=== PATIENT | female | born 1975 | race Caucasian/White ===

== ENCOUNTER 2016-10-08 20:09 | Emergency (ER) | payer MEDICAID ==
[2016-10-08 20:20] VITALS: BP 164/99
[2016-10-08] MEDS ORDERED: Ketorolac 60 MG/2 ML SDV IM ONE (20:36)
--- NOTE | 2016-10-08 20:50 | EDM.PDOC ---
ED HPI GENERAL MEDICAL PROBLEM - General Chief Complaint: General Stated Complaint: LOWER RT TOOTH PAIN Time Seen by Provider: 10/08/16 20:21 Source of Information: Reports: Patient History Limitations: Reports: No Limitations - History of Present Illness INITIAL COMMENTS - FREE TEXT/NARRATIVE: dental pain; this is a 41 year old female presents to ER with , reports had tooth pulled on 10/03/16, the area of extraction is painful. area is more swollen and red. denies any fever or chills. Was given [place] 6 tabs last Thursday, does not have follow up appointment til this Thursday. Onset: Gradual Duration: Getting Worse Location: Reports: Other (tooth) Quality: Reports: Burning, Sharp Severity: Moderate Improves with: Reports: Medication Worsens with: Reports: Eating, Movement Context: Reports: Other (dental extraction) Associated Symptoms: Reports: Other (facial edema) Treatments BAKERY CHEF: Reports: Acetaminophen, NSAIDS Right Lower Face Pain Score (Numeric/FACES): 7 - Related Data Allergies Allergy/AdvReac Type Severity Reaction Status Date / Time No Known Allergies Allergy Verified 10/08/16 20:24 Home Meds: Home Meds Metoprolol Succinate 150 mg PO DAILY 10/08/16 [History] Past Medical History Cardiovascular History: Reports: Hypertension Genitourinary History: Reports: Renal Calculus Social & Family History - Tobacco Use Smoking Status *Q: Current Every Day Smoker Years of Tobacco use: 20 Packs/Tins Daily: 0.5 - Caffeine Use Caffeine Use: Reports: Coffee, Tea - Recreational Drug Use Recreational Drug Use: No - Living Situation & Occupation Living situation: Reports: (lives in [place], [place]. with .) ED ROS GENERAL - Review of Systems Review Of Systems: See Below Constitutional: Reports: No Symptoms HEENT: Reports: Dental Pain Respiratory: Reports: No Symptoms Cardiovascular: Reports: No Symptoms Musculoskeletal: Reports: No Symptoms Skin: Reports: No Symptoms Neurological: Reports: No Symptoms Psychiatric: Reports: No Symptoms ED EXAM, GENERAL - Physical Exam Exam: See Below Exam Limited By: No Limitations General Appearance: Alert, WD/WN, No Apparent Distress Eye Exam: Bilateral Eye: Normal Inspection Ears: Normal External Exam Nose: Normal Inspection Throat/Mouth: Normal Lips, Normal Teeth, Other (dental extraction site with pain with light touch, edema present. blood clot noted at site.) Head: Atraumatic, Normocephalic Neck: Normal Inspection, Supple, Non-Tender, Full Range of Motion Course - Vital Signs Last Recorded V/S: Last Vital Signs Temp 36.8 C 10/08/16 20:18 Pulse 109 H 10/08/16 20:18 Resp 16 10/08/16 20:18 BP 164/99 H 10/08/16 20:18 Pulse Ox 96 10/08/16 20:18 - Orders/Labs/Meds Meds: Medications Discontinued Medications Generic Name Dose Route Start Last Admin Trade Name Margaux PRN Reason Stop Dose Admin Ketorolac Tromethamine 60 mg 10/08/16 20:36 10/08/16 20:40 Toradol IM 10/08/16 20:37 60 mg ONETIME ONE Administration - Re-Assessments/Exams Free Text/Narrative Re-Assessment/Exam: 10/08/16 21:06 Toradol 60mg IM for pain Departure - Departure Time of Disposition: 21:07 Disposition: Home, Self-Care 01 Condition: Good Clinical Impression: Pain, dental - Discharge Information Instructions: Dental Extraction, Care After Referrals: Chet Rm MD [Primary Care Provider] - Forms: ED Department Discharge Care Plan Goals: Dental Pain secondary to extraction on 10/03/2016 -Toradol 60 mg im in ER -home meds; Penicillin 500mg 4 times a day for 7 days Hydrocodone 5-325mg po every 4 to 6 hours as needed for pain #6 -soft diet, avoid spicy or crunchy foods -no smoking or drinking thru a straw to prevent dry socket -no flushing of area with water, gently swish and spit. follow up with Dental Clinic on Thursday as scheduled in [place]. return to ER for any increase pain, fever, chills, swelling, nausea, vomiting or any concerns. - Problem List & Annotations (1) Pain, dental SNOMED Code(s): 73335495 Code(s): K08.89 - OTHER SPECIFIED DISORDERS OF TEETH AND SUPPORTING STRUCTURES Status: Acute Priority: High Current Visit: Yes - Problem List Review Problem List Initiated/Reviewed/Updated: Yes - Assessment/Plan Plan: Dental Pain secondary to extraction on 10/03/2016 -Toradol 60 mg im in ER -home meds; Penicillin 500mg 4 times a day for 7 days Hydrocodone 5-325mg po every 4 to 6 hours as needed for pain #6 -soft diet, avoid spicy or crunchy foods -no smoking or drinking thru a straw to prevent dry socket -no flushing of area with water, gently swish and spit. follow up with Dental Clinic on Thursday as scheduled in [place]. return to ER for any increase pain, fever, chills, swelling, nausea, vomiting or any concerns.
== END 2016-10-08 21:01 | disposition home or self-care (01) ==
LOC: JP.ED 20:09
DX: K08.89 Other specified disorders of teeth and supporting structures (principal); I10 Essential (primary) hypertension; F17.210 Nicotine dependence, cigarettes, uncomplicated; Z98.818 Other dental procedure status; Z79.899 Other long term (current) drug therapy; Z87.442 Personal history of urinary calculi
CPT/HCPCS: 96372; 99283; J1885